=== PATIENT | female | born 1985 | race Caucasian/White ===

== ENCOUNTER 2016-05-11 07:24 | Emergency (ER) | payer MEDICAID ==
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
== END 2016-05-11 08:30 | disposition home or self-care (01) ==
LOC: ER 07:24
DX: M65.4 Radial styloid tenosynovitis [de Quervain] (principal); I10 Essential (primary) hypertension; F17.210 Nicotine dependence, cigarettes, uncomplicated
CPT/HCPCS: 99282

== ENCOUNTER 2016-07-15 19:15 | Emergency (ER) | payer MEDICAID ==
--- NOTE | 2016-07-15 19:40 | Emergency Department Record ---
History of Present Illness - General Chief complaint: Extremity Problem Stated complaint: LEFT KNEE PAIN Time Seen by Provider: 07/15/16 19:30 Source: Patient Mode of Arrival: Ambulatory Limitations: No limitations - History of Present Illness Initial comments: 31 yo female present with left anterior knee pain near the patella. The patient woke up this this morning with pain. No fever or swelling. No calf pain. No calf swelling. No posterior leg, knee, calf pain. The anterior knee hurts to touch or weight bear. No other recent illness. She had her gall bladder removed one month ago but denies ever having calf pain, swelling, posterior pain. This pain is anterior at the patella only. MD Complaint: Joint pain -: Days(s) (1) Location: Left History of Same: No -: Yes Arthralgia Radiation: None Quality: Aching Consistency: Constant Improves with: Nothing Worsens with: Walking, Weight bearing Associated Symptoms: Denies other symptoms - Related Data Home Medications Medication Instructions Recorded Confirmed Last Taken Acarbose [Acarbose] 100 mg PO TID 05/11/16 05/11/16 05/10/16 Insulin Aspart [Novolog] 05/11/16 Unknown Insulin Glargine,Hum.rec.anlog 60 units SQ ASDIR 05/11/16 05/11/16 05/10/16 [Lantus] Losartan/Hydrochlorothiazide 1 each PO DAILY 05/11/16 05/11/16 05/10/16 [Losartan-Hctz 50-12.5 mg Tab] Ondansetron [Ondansetron Odt] 4 mg PO ASDIR 05/11/16 05/11/16 Unknown Simvastatin [Simvastatin] 40 mg PO DAILY 05/11/16 05/11/16 05/10/16 Previous Rx's Medication Instructions Recorded Ibuprofen [Motrin] 800 mg PO Q8H PRN #30 tab 05/11/16 Allergies Allergy/AdvReac Type Severity Reaction Status Date / Time allopurinol Allergy RASH Verified 05/11/16 07:33 insulin detemir Allergy HIVES Verified 05/11/16 07:33 [From Levemir] naproxen Allergy VOMITING Verified 05/11/16 07:33 sulfamethoxazole Allergy HIVES Verified 05/11/16 07:33 [From Bactrim] tioconazole Allergy BLISTERS Verified 05/11/16 07:33 [From Monistat 1 (tioconazole)] trimethoprim [From Bactrim] Allergy HIVES Verified 05/11/16 07:33 Review of Systems Constitutional: Denies: Chills, Weakness Eyes: Denies: Eye discharge ENT: Denies: Congestion, Throat pain Respiratory: Denies: Cough, Dyspnea, Hemoptysis, Stridor, Wheezes Cardiovascular: Denies: Chest pain, Palpitations, Syncope Endocrine: Denies: Fatigue Gastrointestinal: Denies: Abdominal pain, Diarrhea, Nausea, Vomiting Genitourinary: Denies: Dysuria, Urgency Musculoskeletal: Reports: Arthralgia. Denies: Back pain, Joint swelling, Myalgia Skin: Denies: Bruising, Change in color, Rash Neurological: Denies: Headache, Weakness Psychiatric: Denies: Anxiety Hematological/Lymphatic: Denies: Blood Clots, Easy bleeding, Easy bruising, Swollen glands Past Medical History - SOCIAL HISTORY Smoking Status: Current every day smoker Drug Use: None - RESPIRATORY Hx Respiratory Disorders: No - CARDIOVASCULAR Hx Cardio Disorders: Yes Hx Hypertension: Yes - NEURO Hx Neuro Disorders: Yes Hx Headaches: Yes - GI Hx GI Disorders: No - Hx Genitourinary Disorders: Yes Hx Kidney Stones: Yes - ENDOCRINE Hx Endocrine Disorders: Yes Hx Diabetes: Yes - MUSCULOSKELETAL Hx Musculoskeletal Disorders: No - PSYCH Hx Psych Problems: Yes Hx Anxiety: Yes Hx Depression: Yes - HEMATOLOGY/ONCOLOGY Hx Hematology/Oncology Disorders: No Family Medical History Hx Diabetes: Grandparents Hx Heart Disease: Mother Hx HTN: Father, Mother Physical Exam - General General Appearance: Alert, Oriented x3, Cooperative, No acute distress Limitations: No limitations - Head Head exam: Normal inspection - Eye Eye exam: Normal appearance, PERRL - ENT ENT exam: Normal exam Ear exam: Normal external inspection Nasal Exam: Normal inspection Mouth exam: Normal external inspection Teeth exam: Normal inspection - Neck Neck exam: Normal inspection - Respiratory Respiratory exam: Normal lung sounds bilaterally. negative: Respiratory distress - Cardiovascular Cardiovascular Exam: Regular rate, Normal rhythm, Normal heart sounds - Rectal Rectal exam: Deferred - exam: Deferred - Extremities Extremities exam: Normal inspection, Normal capillary refill, Tenderness (Point tender over the patella only, no swelling, no redness, no posterior pain, no calf tenderness), Other (with ROM I can feel slight popping anterior that does cause pain). negative: Calf tenderness, Full ROM, Joint swelling, Pedal edema - Back Back exam: Reports: Normal inspection, Full ROM. Denies: Muscle spasm, Rash noted, Tenderness - Neurological Neurological exam: Alert, Normal gait, Oriented X3 - Psychiatric Psychiatric exam: Normal affect, Normal mood. negative: Agitated, Anxious - Skin Skin exam: Dry, Intact, Normal color, Warm Course - Reevaluation(s) Reevaluation #1: The patient was seen and examined The patient has very specific anterior kenn tenderness. No muscle or soft tissue tenderness to suggest DVT at this time 07/15/16 19:39 Reevaluation #2: The XR demonstrated osteoarthritis she will be sent home with crutches, instructions to follow up with PCP 07/15/16 20:13 Disposition Disposition: Discharge Clinical Impression: Knee pain, left Qualifiers: Chronicity: acute Qualified Code(s): M25.562 - Pain in left knee Disposition: Home, Self-Care Condition: (1) Good Instructions: Osteoarthritis (ED) Additional Instructions: Call your doctor for close follow up If you pain continues you may need follow up with orthopedics or MRI If you get leg swelling or pain in the back you will need an ultrasound right away Forms: Patient Portal Access Time of Disposition: 20:19
== END 2016-07-15 20:39 | disposition home or self-care (01) ==
LOC: ER 19:15
DX: M17.12 Unilateral primary osteoarthritis, left knee (principal)
CPT/HCPCS: 99283

== ENCOUNTER 2016-11-03 17:38 | Emergency (ER) | payer MEDICAID ==
[2016-11-03] MEDS ORDERED: CEPHALEXIN 500 MG CAPSULE PO STA (18:04)
--- NOTE | 2016-11-03 18:05 | Emergency Department Record ---
History of Present Illness - General Chief complaint: Abscess Stated complaint: KNOT UNDER ARM Time Seen by Provider: 11/03/16 17:58 Source: Patient Mode of Arrival: Ambulatory - History of Present Illness Initial comments: The patient has had 3 days of painful bump on her right axilla. No drainage, f, c,swelling. Hx of abscesses which are NOT MRSA. Allergy to Bactrim. Takes keflex without problems. Tetanus UTD. MD complaint: Abscess/boil Onset/Timin -: Days(s) Location: RUE Consistency: Constant Improves with: None Worsens with: None Context: None Associated symptoms: Denies other symptoms Treatments Prior to Arrival: None - Related Data Home Medications Medication Instructions Recorded Confirmed Last Taken Acarbose [Acarbose] 100 mg PO TID 05/11/16 11/03/16 11/03/16 Losartan/Hydrochlorothiazide 1 each PO DAILY 05/11/16 11/03/16 11/03/16 [Losartan-Hctz 50-12.5 mg Tab] Insulin Glargine,Hum.rec.anlog 64 units SQ ASDIR 11/03/16 11/03/16 11/03/16 [Lantus] Omeprazole [Omeprazole] 20 mg PO DAILY 11/03/16 11/03/16 11/03/16 Previous Rx's Medication Instructions Recorded Cephalexin [Keflex] 500 mg PO QID #39 cap 11/03/16 Allergies Allergy/AdvReac Type Severity Reaction Status Date / Time allopurinol Allergy RASH Verified 11/03/16 17:40 insulin detemir Allergy HIVES Verified 11/03/16 17:40 [From Levemir] naproxen Allergy VOMITING Verified 11/03/16 17:40 sulfamethoxazole Allergy HIVES Verified 11/03/16 17:40 [From Bactrim] tioconazole Allergy BLISTERS Verified 11/03/16 17:40 [From Monistat 1 (tioconazole)] trimethoprim [From Bactrim] Allergy HIVES Verified 11/03/16 17:40 Travel Screening - Travel/Exposure Within Last 30 Days Have you traveled within the last 30 days?: No - Travel/Exposure Within Last Year Have you traveled outside the [place] in the last year?: No - Additonal Travel Details Have you been exposed to anyone with a communicable illness?: No - Travel Symptoms Symptom Screening: None Review of Systems Reviewed: No additional complaints except as noted below Constitutional: Reports: As per HPI. Denies: Chills, Fever, Malaise, Night sweats, Weakness, Weight change Eyes: Reports: As per HPI. Denies: Eye discharge, Eye pain, Photophobia, Vision change ENT: Reports: As per HPI. Denies: Congestion, Dental pain, Ear pain, Epistaxis , Hearing loss, Throat pain Respiratory: Reports: As per HPI. Denies: Cough, Dyspnea, Hemoptysis, Stridor, Wheezes Cardiovascular: Reports: As per HPI. Denies: Arrhythmia, Chest pain, Dyspnea on exertion, Edema, Murmurs, Orthopnea, Palpitations, Paroxysmal nocturnal dyspnea, Rheumatic Fever, Syncope Endocrine: Reports: As per HPI. Denies: Fatigue, Heat or cold intolerance, Polydipsia, Polyuria Gastrointestinal: Reports: As per HPI. Denies: Abdominal pain, Constipation, Diarrhea, Hematemesis, Hematochezia, Melena, Nausea, Vomiting Genitourinary: Reports: As per HPI. Denies: Abnormal menses, Discharge, Dyspareunia, Dysuria, Frequency, Hematuria, Incontinence, Retention, Urgency Musculoskeletal: Reports: As per HPI. Denies: Arthralgia, Back pain, Gout, Joint swelling, Myalgia, Neck pain Skin: Reports: As per HPI. Denies: Bruising, Change in color, Change in hair/ nails, Lesions, Pruritus, Rash Neurological: Reports: As per HPI. Denies: Abnormal gait, Confusion, Headache, Numbness, Paresthesias, Seizure, Tingling, Tremors, Vertigo, Weakness Psychiatric: Reports: As per HPI. Denies: Anxiety, Auditory hallucinations, Depression, Homicidal thoughts, Suicidal thoughts, Visual hallucinations Hematological/Lymphatic: Reports: As per HPI. Denies: Anemia, Blood Clots, Easy bleeding, Easy bruising, Swollen glands Past Medical History - SOCIAL HISTORY Smoking Status: Current every day smoker Alcohol Use: Rare Drug Use: None - RESPIRATORY Hx Respiratory Disorders: No - CARDIOVASCULAR Hx Cardio Disorders: Yes Hx Hypertension: Yes - NEURO Hx Neuro Disorders: Yes Hx Headaches: Yes - GI Hx GI Disorders: No - Hx Genitourinary Disorders: Yes Hx Kidney Stones: Yes - ENDOCRINE Hx Endocrine Disorders: Yes Hx Diabetes: Yes - MUSCULOSKELETAL Hx Musculoskeletal Disorders: No - PSYCH Hx Psych Problems: Yes Hx Anxiety: Yes Hx Depression: Yes - HEMATOLOGY/ONCOLOGY Hx Hematology/Oncology Disorders: No Family Medical History Any Significant Family History?: Yes Hx Diabetes: Grandparents Hx Heart Disease: Mother Hx HTN: Father, Mother Physical Exam - General General Appearance: Alert, Oriented x3, Cooperative, No acute distress, Other ( obese) - Head Head exam: Normal inspection - Eye Eye exam: Normal appearance, PERRL Pupils: Normal accommodation - ENT ENT exam: Normal exam, Mucous membranes moist, Normal external ear exam, Normal orophraynx, TM's normal bilaterally Ear exam: Normal external inspection. negative: External canal tenderness Nasal Exam: Normal inspection. negative: Discharge, Sinus tenderness Mouth exam: Normal external inspection, Tongue normal Teeth exam: Normal inspection. negative: Dental caries Throat exam: Normal inspection. negative: Tonsillar erythema, Tonsillar exudate - Neck Neck exam: Normal inspection, Full ROM. negative: Tenderness - Respiratory Respiratory exam: Normal lung sounds bilaterally. negative: Respiratory distress - Cardiovascular Cardiovascular Exam: Regular rate, Normal rhythm, Normal heart sounds - GI/Abdominal GI/Abdominal exam: Soft, Normal bowel sounds. negative: Tenderness - Rectal Rectal exam: Deferred - exam: Deferred - Extremities Extremities exam: Normal inspection, Full ROM, Normal capillary refill, Tenderness (right axilla with small tender surface spot on hair follicles without fluctuance or deeper mass palpable. No cellulitis visible.) - Back Back exam: Reports: Normal inspection, Full ROM. Denies: Muscle spasm, Rash noted, Tenderness - Neurological Neurological exam: Alert, Normal gait, Oriented X3, Reflexes normal - Psychiatric Psychiatric exam: Normal affect, Normal mood - Skin Skin exam: Dry, Intact, Normal color, Warm Course Vital Signs 11/03/16 17:47 Temperature 98.5 F Pulse Rate 88 Respiratory 20 Rate Blood Pressure 128/91 Pulse Ox 97 Medical Decision Making - Management Options MDM Management: No Additional Work-up Planned Disposition Disposition: Discharge Clinical Impression: Folliculitis Disposition: Home, Self-Care Condition: (1) Good Instructions: Abscess (ED) Additional Instructions: Take antibiotics until gone. Do not shave your arm pits while this is an active problem Warm soaks 4 times daily to area. Prescriptions: Cephalexin [Keflex] 500 mg PO QID #39 cap Forms: Patient Portal Access Quality - Quality Measures Quality Measures: N/A - Blood Pressure Screening Blood Pressure Classification: Hypertensive Reading Systolic Measurement: 128 Diastolic Measurement: 91 Screening for High Blood Pressure: Not Eligible for Measure [[id number]] Not Eligible Reason: Active Diagnosis of Hypertension
== END 2016-11-03 18:39 | disposition home or self-care (01) ==
LOC: ER 17:38
DX: L73.9 Follicular disorder, unspecified (principal)
CPT/HCPCS: 99282

== ENCOUNTER 2017-09-02 19:35 | Emergency (ER) | payer MEDICAID ==
[2017-09-02] MEDS ORDERED: KETOROLAC 30 MG/ML VIAL IVP ONE (19:59)
[2017-09-02] MEDS ORDERED: 0.9 % SODIUM CHLORIDE 1,000 ML BAG IV ONE (19:59)
--- NOTE | 2017-09-02 20:10 | Emergency Department Record ---
History of Present Illness - General Chief Complaint: Back Pain/Injury Stated Complaint: LOWER BACK PAIN Time Seen by Provider: 09/02/17 19:51 Source: Patient Mode of Arrival: Ambulatory Limitations: No limitations - History of Present Illness Initial Comments: pt has back pain across lower back and flank area that started this am. she went to a ready care and was told she has blood in her urine and was told to go to er if she got worse and she states she is. she has a hx of kidney stones. she us getting off the depo shot Complaint: Back pain Onset/Timin -: Days(s) Place: Home Severity: Mild Severity scale (1-10): 6 Improves With: None Worsens With: None Context: History of kidney stones Associated Symptoms: Denies other symptoms - Related Data Home Medications Medication Instructions Recorded Confirmed Last Taken Glimepiride [Amaryl] 4 mg PO BID 09/02/17 09/02/17 Unknown Insulin Glargine,Hum.rec.anlog 54 unit SQ BID 09/02/17 09/02/17 Unknown [Basaglar Kwisaias U-100] Metformin HCl 1,000 mg PO BID 09/02/17 09/02/17 Unknown Allergies Allergy/AdvReac Type Severity Reaction Status Date / Time allopurinol Allergy RASH Verified 11/03/16 17:40 insulin detemir Allergy HIVES Verified 11/03/16 17:40 [From Levemir] liraglutide [From Victoza] Allergy VOMITING Verified 09/02/17 19:45 naproxen Allergy VOMITING Verified 11/03/16 17:40 sulfamethoxazole Allergy HIVES Verified 11/03/16 17:40 [From Bactrim] tioconazole Allergy BLISTERS Verified 11/03/16 17:40 [From Monistat 1 (tioconazole)] trimethoprim [From Bactrim] Allergy HIVES Verified 11/03/16 17:40 Travel Screening - Travel/Exposure Within Last 30 Days Have you traveled within the last 30 days?: No - Travel/Exposure Within Last Year Have you traveled outside the [place] in the last year?: No - Additonal Travel Details Have you been exposed to anyone with a communicable illness?: No - Travel Symptoms Symptom Screening: None Review of Systems Reviewed: No additional complaints except as noted below Constitutional: Reports: As per HPI. Denies: Chills, Fever, Malaise, Night sweats, Weakness, Weight change Eyes: Reports: As per HPI. Denies: Eye discharge, Eye pain, Photophobia, Vision change ENT: Reports: As per HPI. Denies: Congestion, Dental pain, Ear pain, Epistaxis , Hearing loss, Throat pain Respiratory: Reports: As per HPI. Denies: Cough, Dyspnea, Hemoptysis, Stridor, Wheezes Cardiovascular: Reports: As per HPI. Denies: Arrhythmia, Chest pain, Dyspnea on exertion, Edema, Murmurs, Orthopnea, Palpitations, Paroxysmal nocturnal dyspnea, Rheumatic Fever, Syncope Endocrine: Reports: As per HPI. Denies: Fatigue, Heat or cold intolerance, Polydipsia, Polyuria Gastrointestinal: Reports: As per HPI. Denies: Abdominal pain, Constipation, Diarrhea, Hematemesis, Hematochezia, Melena, Nausea, Vomiting Genitourinary: Reports: As per HPI. Denies: Abnormal menses, Discharge, Dyspareunia, Dysuria, Frequency, Hematuria, Incontinence, Retention, Urgency Musculoskeletal: Reports: As per HPI. Denies: Arthralgia, Back pain, Gout, Joint swelling, Myalgia, Neck pain Skin: Reports: As per HPI. Denies: Bruising, Change in color, Change in hair/ nails, Lesions, Pruritus, Rash Neurological: Reports: As per HPI. Denies: Abnormal gait, Confusion, Headache, Numbness, Paresthesias, Seizure, Tingling, Tremors, Vertigo, Weakness Psychiatric: Reports: As per HPI. Denies: Anxiety, Auditory hallucinations, Depression, Homicidal thoughts, Suicidal thoughts, Visual hallucinations Hematological/Lymphatic: Reports: As per HPI. Denies: Anemia, Blood Clots, Easy bleeding, Easy bruising, Swollen glands Past Medical History - SOCIAL HISTORY Smoking Status: Current every day smoker Alcohol Use: Occasional Drug Use: None - RESPIRATORY Hx Respiratory Disorders: No - CARDIOVASCULAR Hx Cardio Disorders: Yes Hx Hypertension: Yes - NEURO Hx Neuro Disorders: Yes Hx Headaches: Yes - GI Hx GI Disorders: No - Hx Genitourinary Disorders: Yes Hx Kidney Stones: Yes - ENDOCRINE Hx Endocrine Disorders: Yes Hx Diabetes: Yes - MUSCULOSKELETAL Hx Musculoskeletal Disorders: No - PSYCH Hx Psych Problems: Yes Hx Anxiety: Yes Hx Depression: Yes - HEMATOLOGY/ONCOLOGY Hx Hematology/Oncology Disorders: No Family Medical History Any Significant Family History?: No Hx Diabetes: Grandparents Hx Heart Disease: Mother Hx HTN: Father, Mother Physical Exam - General General Appearance: Alert, Oriented x3, Cooperative, Mild distress - Head Head exam: Normal inspection - Eye Eye exam: Normal appearance, PERRL, EOMI Pupils: Normal accommodation - ENT ENT exam: Normal exam, Mucous membranes moist, Normal external ear exam, Normal orophraynx Ear exam: Normal external inspection. negative: External canal tenderness Nasal Exam: Normal inspection. negative: Discharge, Sinus tenderness Mouth exam: Normal external inspection, Tongue normal Teeth exam: Normal inspection. negative: Dental caries Throat exam: Normal inspection. negative: Tonsillar erythema, Tonsillar exudate - Neck Neck exam: Normal inspection, Full ROM. negative: Tenderness - Respiratory Respiratory exam: Normal lung sounds bilaterally. negative: Respiratory distress - Cardiovascular Cardiovascular Exam: Normal rhythm, Normal heart sounds, Tachycardia - GI/Abdominal GI/Abdominal exam: Soft, Normal bowel sounds. negative: Tenderness - Rectal Rectal exam: Deferred - exam: Deferred - Extremities Extremities exam: Normal inspection, Full ROM, Normal capillary refill. negative: Tenderness - Back Back exam: Reports: Normal inspection, CVA tenderness (R), CVA tenderness (L), Full ROM, Paraspinal tenderness, Tenderness. Denies: Muscle spasm, Rash noted - Neurological Neurological exam: Alert, CN II-XII intact, Normal gait, Oriented X3 - Psychiatric Psychiatric exam: Normal affect, Normal mood - Skin Skin exam: Dry, Intact, Normal color, Warm Course Vital Signs 09/02/17 19:39 Temperature 98.5 F Pulse Rate [ 118 H Pulse Ox Probe] Respiratory 20 Rate Blood Pressure 129/99 [Left Arm] Pulse Ox 96 - Reevaluation(s) Reevaluation #1: 09/02/17 21:[address] and wants to f/u with her urologist tomorrow. she states he will get a ct. she feels better. pain is nearly gone. Medical Decision Making - Lab Data Result diagrams: 09/02/17 20:22 09/02/17 20:22 Disposition Disposition: Discharge Clinical Impression: Flank pain, acute Disposition: Home, Self-Care Condition: (1) Good Instructions: Flank Pain (ED) Additional Instructions: follow up with urologist tomorrow. return sooner if worse. Forms: Patient Portal Access Quality - Quality Measures Quality Measures: N/A - Blood Pressure Screening Does Patient Have Any of the Following: No Blood Pressure Classification: Normal BP Reading Systolic Measurement: 107 Diastolic Measurement: 71 Screening for High Blood Pressure: < Normal BP, F/U Not Required > [G8783]
[2017-09-02 20:28] LABS: BASO % 0.4 % (0-6); EOS % 3.7 % (0-6); GRAN % 62.6 % (47-80); HEMATOCRIT 41.4 % (35.0-47.0); HEMOGLOBIN 14.4 gm/dl (11.6-16.0); LYMPH % 26.8 % (16-45); MEAN CELL VOLUME 86.1 fl (81-97); MEAN CORPUSCULAR HEMOGLOBIN 29.9 pg (27-33); MEAN CORPUSCULAR HGB CONC 34.8 g/dl (32-36); MEAN PLATELET VOLUME 11.3 fl (7.4-10.4); MONO % 6.5 % (0-9); PLATELET COUNT 325 K/uL (130-400); RED BLOOD COUNT 4.81 M/uL (3.80-5.40); RED CELL DISTRIBUTION WIDTH 12.6 % (11.5-14.5); URINE APPEARANCE CLEAR; URINE BILIRUBIN NEGATIVE (NEGATIVE); URINE BLOOD LARGE (NEGATIVE); URINE COLOR YELLOW; URINE GLUCOSE (UA) NEGATIVE (NEGATIVE); URINE KETONE NEGATIVE (NEGATIVE); URINE LEUKOCYTE ESTERASE NEGATIVE (NEGATIVE); URINE NITRITE NEGATIVE (NEGATIVE); URINE PROTEIN NEGATIVE (NEGATIVE); URINE UROBILINOGEN 0.2 E.U./dL (0.20 - 1.00); WHITE BLOOD COUNT W/O DIFF 12.9 K/uL (4.2-12.2)
[2017-09-02 20:29] LABS: HCG,QUALITATIVE URINE NEGATIVE (NEGATIVE); URINE BACTERIA NONE SEEN; URINE EPITHELIAL CELLS 0 - 2 (FEW); URINE WBC 0 - 2 (0-2/hpf)
[2017-09-02 20:40] LABS: BLOOD UREA NITROGEN 16 mg/dL (6-20); CREATININE 0.6 mg/dL (0.5-0.9); EST GLOMERULAR FILTRATION RATE > 60 mL/min
[2017-09-02 20:43] LABS: GLUCOSE,RANDOM 177 mg/dL (74-109)
== END 2017-09-02 21:21 | disposition home or self-care (01) ==
LOC: ER 19:35
DX: R10.9 Unspecified abdominal pain (principal); M54.5 Low back pain; R31.29 Other microscopic hematuria; I10 Essential (primary) hypertension; F17.210 Nicotine dependence, cigarettes, uncomplicated; Z87.442 Personal history of urinary calculi
CPT/HCPCS: 80048; 81001; 81025; 85025; 96374; 99284; J1885; J7030

== ENCOUNTER 2018-05-07 13:50 | Emergency (ER) | payer MEDICAID ==
--- NOTE | 2018-05-07 14:02 | Emergency Department Record ---
History of Present Illness - General Chief Complaint: Vomiting Stated Complaint: VOMITING AND COUGH Time Seen by Provider: 05/07/18 13:56 Source: Patient, Family Mode of Arrival: Ambulatory Limitations: No limitations - History of Present Illness Initial Comments: 33 yo female presents with cough, congestion, sore throat with drainage that started yesterday. The sore throat and cough have worsened today. She has had subjective fevers. She is quitting smoking. She did have vomiting this morning. She took Zofran and now improved. She tolerated soup for lunch and drinking fluids. She had childhood asthma that has not been an issue as an adult. She noticed some burning with urination last night and this morning as well. MD Complaint: Cough, Fever, Rhinorrhea, Sinus pain, Sore throat -: Days(s) (1) Severity: Moderate Quality: Aching Consistency: Constant Improves With: Nothing Worsens With: Other (coughing) Context: Sick contacts Associated Symptoms: Chills, Cough, Fever, Nasal congestion, Nausea, Rhinorrhea , Sore throat, Vomiting Treatments Prior to Arrival: Other - Related Data Home Medications Medication Instructions Recorded Confirmed Last Taken Varenicline Tartrate [Chantix] 1 mg PO BID 05/07/18 05/07/18 1 Day Ago ~05/06/18 Previous Rx's Medication Instructions Recorded Azithromycin [Zithromax] 250 mg PO DAILY #4 tab 05/07/18 Benzonatate [Tessalon Perle] 100 mg PO Q8H #25 capsule 05/07/18 Allergies Allergy/AdvReac Type Severity Reaction Status Date / Time allopurinol Allergy RASH Verified 05/07/18 13:58 insulin detemir Allergy HIVES Verified 05/07/18 13:58 [From Levemir] liraglutide [From Victoza] Allergy VOMITING Verified 05/07/18 13:58 naproxen Allergy VOMITING Verified 05/07/18 13:58 sulfamethoxazole Allergy HIVES Verified 05/07/18 13:58 [From Bactrim] tioconazole Allergy BLISTERS Verified 05/07/18 13:58 [From Monistat 1 (tioconazole)] trimethoprim [From Bactrim] Allergy HIVES Verified 05/07/18 13:58 Review of Systems Constitutional: Reports: Chills, Fever, Malaise Eyes: Denies: Eye discharge, Eye pain, Photophobia, Vision change ENT: Reports: Congestion, Throat pain Respiratory: Reports: Cough. Denies: Dyspnea Cardiovascular: Denies: Chest pain, Edema, Palpitations, Syncope Endocrine: Denies: Fatigue Gastrointestinal: Reports: Nausea, Vomiting. Denies: Abdominal pain, Diarrhea Genitourinary: Reports: Dysuria (burning sensation last night and this morning) , Frequency. Denies: Hematuria, Urgency Musculoskeletal: Reports: Myalgia. Denies: Arthralgia, Back pain Skin: Denies: Bruising, Change in color, Rash Neurological: Denies: Headache Psychiatric: Denies: Anxiety Hematological/Lymphatic: Denies: Easy bleeding, Easy bruising, Swollen glands Past Medical History - SOCIAL HISTORY Smoking Status: Current every day smoker Drug Use: None - RESPIRATORY Hx Respiratory Disorders: No - CARDIOVASCULAR Hx Cardio Disorders: Yes Hx Hypertension: Yes - NEURO Hx Neuro Disorders: Yes Hx Headaches: Yes - GI Hx GI Disorders: No - Hx Genitourinary Disorders: Yes Hx Kidney Stones: Yes - ENDOCRINE Hx Endocrine Disorders: Yes Hx Diabetes: Yes - MUSCULOSKELETAL Hx Musculoskeletal Disorders: No - PSYCH Hx Psych Problems: Yes Hx Anxiety: Yes Hx Depression: Yes - HEMATOLOGY/ONCOLOGY Hx Hematology/Oncology Disorders: No Family Medical History Hx Diabetes: Grandparents Hx Heart Disease: Mother Hx HTN: Father, Mother Physical Exam - General General Appearance: Alert, Oriented x3, Cooperative, No acute distress Limitations: No limitations - Head Head exam: Atraumatic, Normal inspection - Eye Eye exam: Normal appearance, PERRL. negative: Conjunctival injection - ENT ENT exam: Normal exam, Mucous membranes moist, Normal orophraynx, TM's normal bilaterally. negative: Mucous membranes dry Ear exam: Normal external inspection Nasal Exam: Discharge (clear) Mouth exam: Normal external inspection Teeth exam: Normal inspection Throat exam: Normal inspection. negative: Tonsillar erythema, Tonsillomegaly, Tonsillar exudate, R peritonsillar mass, L peritonsillar mass - Neck Neck exam: Normal inspection. negative: Tenderness - Respiratory Respiratory exam: Decreased breath sounds, Rhonchi (few mildly scattered rhonchi ), Other (Frequent cough, non labored, normal work of breathing). negative: Accessory muscle use, Prolonged expiratory, Respiratory distress, Stridor, Wheezes - Cardiovascular Cardiovascular Exam: Normal rhythm, Normal heart sounds, Tachycardia Peripheral Pulses: 2+: Radial (R), Radial (L) - GI/Abdominal GI/Abdominal exam: Soft. negative: Tenderness - Rectal Rectal exam: Deferred - exam: Deferred - Extremities Extremities exam: negative: Pedal edema - Back Back exam: Denies: CVA tenderness (R), CVA tenderness (L) - Neurological Neurological exam: Alert, Oriented X3 - Psychiatric Psychiatric exam: Normal affect, Normal mood - Skin Skin exam: Dry, Intact, Normal color, Warm Course - Reevaluation(s) Reevaluation #1: The patient states the nausea is well controlled at this time. She is tolerating PO and declined Zofran. Afebrile 05/07/18 14:01 05/07/18 14:27 The UCG is negative The Influenza are negative No ketones in the UA 05/07/18 14:28 The UA is negative for signs of infection Disposition Disposition: Discharge Clinical Impression: Bronchitis Disposition: Home, Self-Care Condition: (1) Good Instructions: Acute Bronchitis (ED) Additional Instructions: Call your doctor for the next available follow up appointment Return to the ER for a recheck if worse, any new concerns or questions Take the prescriptions provided as directed Review this ER visit and the tests performed with your family doctor Prescriptions: Azithromycin [Zithromax] 250 mg PO DAILY #4 tab Benzonatate [Tessalon Perle] 100 mg PO Q8H #25 capsule Forms: Patient Portal Access Time of Disposition: 14:28 Quality - Quality Measures Quality Measures: N/A - Blood Pressure Screening Does Patient Have Any of the Following: Active Dx of HTN Blood Pressure Classification: Hypertensive Reading Systolic Measurement: 160 Diastolic Measurement: 115 Screening for High Blood Pressure: Patient Exclusion, Hx of HTN [G9744]
[2018-05-07 14:14] LABS: URINE APPEARANCE SL CLOUDY; URINE BILIRUBIN NEGATIVE (NEGATIVE); URINE BLOOD LARGE (NEGATIVE); URINE COLOR YELLOW; URINE KETONE NEGATIVE (NEGATIVE); URINE LEUKOCYTE ESTERASE NEGATIVE (NEGATIVE); URINE NITRITE NEGATIVE (NEGATIVE); URINE PROTEIN NEGATIVE (NEGATIVE); URINE UROBILINOGEN 0.2 E.U./dL (0.20 - 1.00)
[2018-05-07 14:18] LABS: URINE GLUCOSE (UA) >=1000 mg/dL (NEGATIVE)
[2018-05-07 14:19] LABS: INFLUENZA A NEGATIVE (NEGATIVE); INFLUENZA B NEGATIVE (NEGATIVE)
[2018-05-07] MEDS ORDERED: AZITHROMYCIN 500 MG TABLET PO ONE (14:26)
[2018-05-07 14:28] LABS: URINE BACTERIA NONE SEEN; URINE EPITHELIAL CELLS 0 - 2 (FEW); URINE RBC 0 - 2 (NONE SEEN); URINE WBC NONE SEEN (0-2/hpf)
== END 2018-05-07 14:48 | disposition home or self-care (01) ==
LOC: ER 13:50
DX: J20.9 Acute bronchitis, unspecified (principal); R11.2 Nausea with vomiting, unspecified; I10 Essential (primary) hypertension; F17.210 Nicotine dependence, cigarettes, uncomplicated
CPT/HCPCS: 81001; 81025; 87400; 99283